=== PATIENT | male | born 1960 ===

== ENCOUNTER 2018-02-07 08:57 | Emergency (ER) | payer OTHER ==
[2018-02-07 09:03] VITALS: BMI 26.9
[2018-02-07 09:05] VITALS: TEMP 97.6
--- NOTE | 2018-02-07 09:37 | C.PDOC ---
History Of Present Illness RODR[place]GUEZ, [place] X 3 DAYS. CONSTANT. PS SIM RODRÍGUEZ "MANY MANY YEARS AGO", DX W TIA. DENIES FOCAL WEAK, NUMB. NO RELIEF W TRAMADOL. TOOK ROUTINE HTN MEDS ZONE MANAGER EXAM MILD DIST NONTOXIC HEENT ATRAUM NO PHOTOPHOBIA NECK SUPPLE NEURO NO GROSS FOCAL DEF REMAINDER NEG Time Seen by Provider: 02/07/18 09:20 Chief Complaint (Nursing): Headache History Per: Patient History/Exam Limitations: no limitations Onset/Duration Of Symptoms: Days Current Symptoms Are (Timing): Still Present Past Medical History Reviewed: Historical Data, Nursing Documentation, Vital Signs Vital Signs: Last Vital Signs Temp 97.6 F 02/07/18 09:04 Pulse 67 02/07/18 10:52 Resp 12 02/07/18 10:52 BP 165/97 H 02/07/18 10:52 Pulse Ox 99 02/07/18 12:51 - Medical History PMH: Gastritis, HTN, Hypercholesterolemia, Hypothyroidism, Chronic Kidney Disease, Sleep Apnea, TIA Denies: Kidney Stones Surgical History: Hernia Repair (Inguinal Hernia) - [facility] Procedures OTH & OPEN REPAIR DIRECT INGUINAL HERNIA W GRAFT OR PROSTH (06/08/15) PERCUTAN RENAL ASPIRAT (03/01/15) Family History: States: No Known Family Hx - Social History Hx Tobacco Use: No Hx Alcohol Use: No Hx Substance Use: No - Immunization History Hx Tetanus Toxoid Vaccination: Yes (2010) Hx Influenza Vaccination: No Hx Pneumococcal Vaccination: Yes Review Of Systems Constitutional: Negative for: Fever Cardiovascular: Negative for: Chest Pain Respiratory: Negative for: Shortness of Breath Gastrointestinal: Positive for: Nausea, Vomiting. Negative for: Hematochezia, Hematemesis Neurological: Negative for: Weakness, Numbness, Headache, Dizziness Physical Exam - Physical Exam Appears: Non-toxic, No Acute Distress (Mild distress) Skin: Warm, Dry, No Rash Head: Normacephalic Eye(s): bilateral: PERRL, Other (no photophobia) Nose: Normal Oral Mucosa: Moist Lips: Normal Appearing Neck: Normal ROM Chest: Symmetrical Cardiovascular: Rhythm Regular, No Murmur Respiratory: Normal Breath Sounds, No Accessory Muscle Use Extremity: Normal ROM, No Deformity, No Swelling Neurological/Psych: Oriented x3, Normal Speech, Other (NO FOCAL DEFICIT) ED Course And Treatment - Laboratory Results Result Diagrams: 02/07/18 09:45 02/07/18 09:45 ECG: Interpreted By Me ECG Rhythm: Sinus Bradycardia ECG Interpretation: Normal Rate From EC O2 Sat by Pulse Oximetry: 99 (RA) Pulse Ox Interpretation: Normal Progress - Re-Evaluation Re-evaluation Note: 02/07/18 12:50 FEELS BETTER, NEURO INTACT D/W DR BERNSTEIN NEURO MACHINE ICER AWARE OF ER FINDINGS. CLEARED FOR OUTPT FU - Data Reviewed Data Reviewed: Lab, Diagnostic imaging, EKG, Old records - Continuity of Care Discussed pt. case with email production consultant/specialty: Neurology Disposition Counseled Patient/Family Regarding: Studies Performed, Diagnosis, Need For Followup - Disposition Referrals: Eliel Bernstein MD [Staff Provider] - YOUR,PMD [Other] Disposition: HOME/ ROUTINE Disposition Time: 12:52 Condition: IMPROVED Instructions: Headache, Adult (DC) Forms: [facility] (Sudanese), Work Excuse Print Language: ROMANSH - Clinical Impression Clinical Impression: Headache - Scribe Statement The provider has reviewed the documentation as recorded by the Scribe (Jony Hancock) All medical record entries made by the Scribe were at my direction and personally dictated by me. I have reviewed the chart and agree that the record accurately reflects my personal performance of the history, physical exam, medical decision making, and the department course for this patient. I have also personally directed, reviewed, and agree with the discharge instructions and disposition.
[2018-02-07] MEDS ORDERED: Magnesium Sulfate 2 GM in Dextrose 5% In Water 250 ML IVPB ONE (09:38)
[2018-02-07 09:50] LABS: BASO % 0.6 % (0.0-2.0); EOS # 0.3 K/uL (0.0-0.7); EOS % 5.9 % (0.0-4.0); HEMOGLOBIN 13.8 g/dL (12.0-18.0); LYMPH # 1.2 K/uL (1.0-4.3); LYMPH % 20.5 % (20.0-40.0); MEAN CELL VOLUME 89.3 fL (80.0-94.0); MEAN CORPUSCULAR HEMOGLOBIN 30.1 pg (27.0-31.0); MEAN CORPUSCULAR HGB CONC 33.6 g/dL (33.0-37.0); MEAN PLATELET VOLUME 9.7 fL (7.2-11.7); MONO # 0.6 K/uL (0.0-0.8); MONO % 10.7 % (0.0-10.0); NEUT # 3.5 K/uL (1.8-7.0); NEUT % 62.3 % (50.0-75.0); NRBC % 0.2 % (0.0-2.0); RBC 4.61 Mil/uL (4.40-5.90); RED CELL DISTRIBUTION WIDTH 14.5 % (11.5-14.5); WHITE BLOOD COUNT 5.7 K/uL (4.8-10.8)
[2018-02-07] MEDS ORDERED: Magnesium Sulfate 1 gm in D5W 1 GM/100 ML BAG IVPB ONE ×2 (09:50→09:51)
[2018-02-07 10:02] LABS: CALCIUM 8.7 mg/dl (8.6-10.4)
--- NOTE | 2018-02-07 10:47 | CT ---
PROCEDURE: CT HEAD WITHOUT CONTRAST. HISTORY: Headache COMPARISON: None available. TECHNIQUE: Axial computed tomography images were obtained through the head/brain without intravenous contrast. Radiation dose: Total exam DLP = 1048.74 mGy-cm. This CT exam was performed using one or more of the following dose reduction techniques: Automated exposure control, adjustment of the mA and/or kV according to patient size, and/or use of iterative reconstruction technique. FINDINGS: HEMORRHAGE: No intracranial hemorrhage. BRAIN: No mass effect or edema. No atrophy or chronic microvascular ischemic changes. Incidentally noted flattening of the pituitary along the floor of the sella turcica, so-called "empty sella syndrome ". VENTRICLES: Unremarkable. No hydrocephalus. CALVARIUM: Unremarkable. PARANASAL SINUSES: Unremarkable as visualized. No significant inflammatory changes. MASTOID AIR CELLS: Unremarkable as visualized. No inflammatory changes. OTHER FINDINGS: None. IMPRESSION: Incidentally noted "Empty sella" . No intracranial mass, hemorrhage or evidence of acute infarct.
[2018-02-07 11:53] VITALS: RESP 12
[2018-02-07 13:06] VITALS: BP 145/93; PULSE 65; O2SAT 97
--- NOTE | 2018-02-09 13:27 | CARD ---
APPROVED REPORT EKG Measurement Heart [id number] CT [id number] [id number] <Conclusion> Sinus bradycardia Otherwise normal ECG
== END 2018-02-07 13:16 | disposition home or self-care (01) ==
LOC: C.ER 08:57
DX: R51 Headache (principal)
CPT/HCPCS: 70450; 80048; 82948; 83735; 85025; 96365; 96375; 99285; J1100; J1885; J2765; J3475; J7060